=== PATIENT | female | born 1970 | race Caucasian/White ===

== ENCOUNTER → 2018-09-25 | Outpatient (CLI) | payer BC ==
[~2018-09-25] MED LIST: BIOT25006 PO; CINN500C2 PO; CYCL10TA2 PO; DOCU-109 PO; FERR325T14 PO; FERR325T72 PO; GABA-585 PO; HYDR12.575 PO; METO100T7 PO; NAPR-514 PO; NAPR220C4 PO; NORG1TAB34 PO; OXYC1TAB15 PO; POTASSIUM PO
--- NOTE | 2018-09-25 12:34 | KCIC ---
Indication:Dysmenorrhea. Fibroids. TECHNIQUE: Grayscale, color Doppler and spectral waveform images of the pelvis obtained. COMPARISON: None FINDINGS: Uterus is enlarged measuring 23.3 x 14.4 x 16.0 cm (longitudinal, AP, transverse). 10.4 x 10.1 x 10.8 cm mixed echogenicity mass is seen in the left fundus of the uterus most likely a fibroid. Short segment of endometrium is visualized and measures 1 cm in thickness. Rest of the endometrial stripe is distorted and is not visualized. Bilateral ovaries are not seen. No free pelvic fluid. IMPRESSION: Enlarged fibroid uterus with indistinct endometrial stripe which may be from distortion from the submucosal fibroid or adenomyosis. Electronically signed by: Diogenes Pennington DO (09/25/2018 12:31 PM) [facility]
== END | disposition home or self-care (01) ==
LOC: KCIC US 10:50
PROVIDERS: ATTEND Obstetrics & Gynecology
DX: Z01.419 Encounter for gynecological examination (general) (routine) without abnormal findings (principal); D25.9 Leiomyoma of uterus, unspecified; N85.2 Hypertrophy of uterus
CPT/HCPCS: 76856

== ENCOUNTER 2018-11-05 05:55 | Inpatient (IN) | payer BC ==
[2018-11-05] VITALS (8 sets, daily range): BP systolic 94–122; BP diastolic 63–72
[~2018-11-05] VITALS: Ht 167.6 cm; Wt 106.1 kg
[~2018-11-05 05:55] MED LIST changes: -DOCU-109 PO; -FERR325T72 PO; -OXYC1TAB15 PO
[2018-11-05] MEDS ORDERED: ceFAZolin SODIUM 3 GM in IV DEXTROSE 5% 100ML 100 ML IV PRN (06:00)
[2018-11-05] MEDS ORDERED: SURGICEL HEMOSTAT 4X8 EACH. ONE (06:04)
[2018-11-05] MEDS ORDERED: BUPIVACAINE-EPI 0.25%-1:200000 MPF 30 ML VIAL. ONE (06:04)
[2018-11-05 06:49] LABS: BASO % 0 % (0-3); EOS # 0.3 x10^3/uL (0.0-0.7); EOS % 3 % (0-3); HEMATOCRIT 46.2 % (36.0-47.0); HEMOGLOBIN 15.2 g/dL (12.0-15.5); LYMPH % 23 % (24-48); MEAN CORPUSCULAR HEMOGLOBIN 30 pg (25-35); MEAN CORPUSCULAR HGB CONC 33 g/dL (31-37); MEAN CORPUSCULAR VOLUME 90 fL (79-100); MONO # 0.5 x10^3/uL (0.0-1.1); MONO % 6 % (0-9); NEUT # 5.8 x10^3uL (1.8-7.7); NEUT % 67 % (31-73); PLATELET COUNT 237 x10^3/uL (140-400); RED BLOOD COUNT 5.15 x10^6/uL (3.50-5.40); RED CELL DISTRIBUTION WIDTH 14.9 % (11.5-14.5); WHITE BLOOD COUNT 8.7 x10^3/uL (4.0-11.0)
[2018-11-05] MEDS ORDERED: HYDROmorphone 2 MG/ML VIAL IV PRN (07:00)
[2018-11-05] MEDS ORDERED: PROCHLORPERAZINE 10 MG/2 ML VIAL. IV PRN ×2 (07:00→10:30)
[2018-11-05] MEDS ORDERED: IV RINGERS,LACTATED 1000ML 1,000 ML IV SCH (07:00)
[2018-11-05] MEDS ORDERED: ONDANSETRON PF 4 MG/2 ML VIAL. IV PRN ×2 (07:00→10:30)
[2018-11-05] MEDS ORDERED: fentaNYL PF VIAL 100 MCG/2 ML VIAL IV PRN (07:00)
[2018-11-05 07:04] LABS: U PREG PATIENT NEGATIVE (NEG)
[2018-11-05] MEDS ORDERED: fentaNYL PF VIAL 100 MCG/2 ML VIAL ONE ×4 (07:29→11:11)
[2018-11-05] MEDS ORDERED: ONDANSETRON PF 4 MG/2 ML VIAL. ONE (07:29)
[2018-11-05] MEDS ORDERED: PROPOFOL 20 ML IV ONE (07:29)
[2018-11-05] MEDS ORDERED: LIDOCAINE 2% PF 5 ML VIAL. ONE (07:29)
[2018-11-05] MEDS ORDERED: DEXAMETHASONE SOD PHOS 4 MG/ML VIAL ONE (07:29)
[2018-11-05] MEDS ORDERED: ROCURONIUM 50 MG/5 ML VIAL. ONE ×2 (07:30→08:31)
[2018-11-05] MEDS ORDERED: KETAMINE HCL IN NACL, ISO-OSM 50 MG/5 ML SYRINGE ONE (08:04)
[2018-11-05] MEDS ORDERED: IPRATRPIUM/ALBUTEROL 0.5/2.5MG 3 ML NEBU. ONE (08:13)
[2018-11-05] MEDS ORDERED: IPRATRPIUM/ALBUTEROL 0.5/2.5MG 3 ML NEBU. NEB ONE (08:30)
[2018-11-05] MEDS ORDERED: ALBUMIN HUMAN 5% 500 ML IV ONE ×2 (08:32→09:22)
[2018-11-05] MEDS ORDERED: SEVOFLURANE > 120 MINUTES. IH ONE (09:33)
[2018-11-05] MEDS ORDERED: GLYCOPYRROLATE 1 MG/5 ML VIAL. ONE (10:02)
[2018-11-05] MEDS ORDERED: NEOSTIGMINE METHYLSULFATE 5 MG/5 ML SYRINGE. ONE (10:03)
--- NOTE | 2018-11-05 10:21 | PDOC ---
BRIEF OPERATIVE NOTE Date: November 05, 2018 Pre-Op Diagnosis 1. Fibroids 2. Menorrhagia 3. Dysmenorrhea Post-Op Diagnosis Same Procedure Performed SUDHA & BSO Surgeon Dr. Smallwood Coding Assistant Mariajose Anesthesia Type: General Blood Loss 2600 ml Specimens Obtained Uterus, cervix, bilateral fallopian tubes and ovaries Findings nml size uterus with 20 cm + fibroids, nml fallopian tubes and ovaries jonathan Complications none Operative Note see dictation HESHAM SMALLWOOD Jr, MD November 05, 2018 10:21
[2018-11-05] MEDS ORDERED: ZOLPIDEM 5 MG TABLET. PO PRN (10:30)
[2018-11-05] MEDS ORDERED: diphenhydrAMINE 50 MG/ML VIAL IV PRN (10:30)
[2018-11-05] MEDS ORDERED: diphenhydrAMINE HCL 25 MG CAPSULE PO PRN (10:30)
[2018-11-05] MEDS ORDERED: CALCIUM CARBONATE 500 MG TAB.CHEW PO PRN (10:30)
[2018-11-05] MEDS ORDERED: 0.9 % SODIUM CHLORIDE 10 ML DISP.SYRIN. IV PRN (10:30)
[2018-11-05] MEDS ORDERED: DEXTROSE 50% 25 GM / 50ML DISP.SYRIN. IV PRN (10:30)
--- NOTE | 2018-11-05 10:45 | OP ---
DATE OF SURGERY: PREOPERATIVE DIAGNOSES: 1. Fibroids. 2. Menorrhagia. 3. Dysmenorrhea. POSTOPERATIVE DIAGNOSES: 1. Fibroids. 2. Menorrhagia. 3. Dysmenorrhea. PROCEDURE: SUDHA and BSO. SURGEON: Hesham Smallwood MD MAINTENANCE TRUCK DRIVER: Mariajose. ANESTHESIA: GETA. ESTIMATED BLOOD LOSS: 2600 mL. COMPLICATIONS: None. FINDINGS: Normal size uterus with 20 cm plus fibroids, normal fallopian tubes and ovaries bilaterally. SUMMARY: A 48-year-old with long history of 30-year plus history of dysmenorrhea and menorrhagia. The patient was also known to have enlarged fibroids. The patient was counseled on the risks, benefits and expectations of SUDHA and BSO and voiced a clear understanding to proceed. DESCRIPTION OF PROCEDURE: The patient was taken to surgery suite and placed in dorsal supine position. She was prepped with ChloraPrep and draped in a sterile fashion. After adequate anesthesia, a vertical skin incision was made from the pubic symphysis up to the umbilicus. DICTATION ENDS HERE HESHAM SMALLWOOD MD DR: CHEYENNE/justina JOB#: [id number] / [id number]
[2018-11-05 10:47] LABS: HEMATOCRIT 32.5 % (36.0-47.0); HEMOGLOBIN 10.6 g/dL (12.0-15.5)
[2018-11-05] MEDS: fentaNYL PF VIAL 100 MCG/2 ML VIAL IV PRN ×3 (10:58→11:15)
[2018-11-05] MEDS: MORPHINE SULFATE 2 MG/ML VIAL. IV PRN ×3 (11:17→11:38)
--- NOTE | 2018-11-05 11:40 | OP ---
DATE OF SURGERY: 11/05/2018 PREOPERATIVE DIAGNOSES: 1. Fibroids. 2. Menorrhagia. 3. Dysmenorrhea. POSTOPERATIVE DIAGNOSES: 1. Fibroids. 2. Menorrhagia. 3. Dysmenorrhea. PROCEDURE: SUDHA and BSO. SURGEON: Hesham Smallwood MD DETAILER: Mariajose. ANESTHESIA: GETA. ESTIMATED BLOOD LOSS: 2600 mL. COMPLICATIONS: None. FINDINGS: Normal size uterus with 20 cm plus fibroids, normal fallopian tubes and ovaries bilaterally. SUMMARY: A 48-year-old with long history of 30-year plus history of dysmenorrhea and menorrhagia. The patient was also known to have enlarged fibroids. The patient was counseled on the risks, benefits and expectations of SUDHA and BSO and voiced a clear understanding to proceed. DESCRIPTION OF PROCEDURE: The patient was taken to surgery suite and placed in dorsal supine position. She was prepped with ChloraPrep and draped in a sterile fashion. After adequate anesthesia, a vertical skin incision was made from the pubic symphysis up to the umbilicus. Once the patient was in supine position and prepped and draped in sterile fashion, vertical skin incision was made from the pubic symphysis up to the umbilicus. The incision was carried down to the fascia. The fascia was then entered with Bovie cautery and extended superiorly as well as inferiorly. The abdominal rectus muscles were then dissected bluntly at the midline. Peritoneum was grasped with two hemostats and entered sharply with Metzenbaum scissors. This incision was extended superiorly as well as inferiorly. The Javier ring retractor was placed. The uterus was a normal size uterus, fallopian tubes and ovaries appeared normal. The fibroids were 20+ cm size, which made the uterus immobile. Initially, we clamped the right infundibulopelvic ligament, was isolated and clamped with curved Norma clamps, cut and suture ligated with 2-0 Vicryl suture. The right round ligament was grasped and a 2-0 Vicryl suture was placed in the proximal and distal portion of the round ligament. The Bovie cautery was utilized to dissect between the two sutures. The right utero-ovarian pedicle was then clamped and isolated with curved Norma clamps, cut and suture ligated and removed. Same process took place with left adnexa. At this time due to the enlargement of the fibroid and inability to exteriorize the fibroid from the abdominal cavity, we then began a coring method using the scalpel to remove portions of the fibroid. At this time, we also removed the upper part of the uterus. We continued the coring method and got all the way down to the lower uterine segment and the fibroid was then removed. The uterosacral ligament was clamped bilaterally, cut, and suture ligated. The cardinal ligaments and uterine artery was clamped bilaterally, cut, and suture ligated. We then used straight Norma clamps just adjacent to the cervix bilaterally in which two additional pedicles were clamped, cut, suture ligated. Cervix was palpated and the cervix was removed with the aid of curved Norma clamps. The vaginal cuff was reapproximated as well as incorporation of the uterosacral ligaments bilaterally with 2-0 Vicryl sutures in a [id number] manner. A bladder reflection was dissected during dissection time. Suction irrigation was utilized to help verify hemostasis. We did utilize Braulio as well as 5 mL of FloSeal due to the peritoneal edges with minimal bleeding during the time of the removal of the fibroids. The remainder of the pedicles were all hemostatic. The ureters were palpated bilaterally as well as visualized and functioning normally. The Javier ring retractor was removed. The peritoneum was then reapproximated using #1 Vicryl suture in a running fashion. Fascia was reapproximated using 0 Vicryl suture in running fashion. Subcutaneous layer was reapproximated using #1 Vicryl suture in a running fashion. Skin was reapproximated using 4-0 Vicryl suture in subcuticular manner. Prevena wound VAC was placed. The patient tolerated the procedure well and was taken to recovery room in stable condition. Sponge and needle count correct x 3. This procedure was extended due to the high difficulty of the enlarged fibroids. The patient did lose about a little more than 2 liters of blood during the surgery time due to the large fibroids and 1 unit of blood was started in the OR. She will be evaluated once in the PACU as well as on the floor. HESHAM SMALLWOOD MD DR: CHEYENNE/justina JOB#: [id number] / [id number]
[2018-11-05] MEDS: KETOROLAC 30 MG/ML VIAL. IV PRN (17:08)
[2018-11-05] MEDS: SIMETHICONE 80 MG TAB.CHEW PO PRN (18:36)
[2018-11-05] MEDS: oxyCODONE/APAP 5/325 1 TAB TABLET PO PRN ×2 (19:18→23:18)
[2018-11-05] MEDS: GABAPENTIN 300 MG CAPSULE. PO SCH ×2 (19:19→23:17)
[2018-11-06] MEDS: KETOROLAC 30 MG/ML VIAL. IV PRN ×4 (01:01→22:36)
[2018-11-06] MEDS: oxyCODONE/APAP 5/325 1 TAB TABLET PO PRN ×5 (03:29→21:17)
[2018-11-06] MEDS: SIMETHICONE 80 MG TAB.CHEW PO PRN ×2 (03:32→10:34)
[2018-11-06 05:14] LABS: BASO % 0 % (0-3); EOS % 0 % (0-3); HEMATOCRIT 25.7 % (36.0-47.0); HEMOGLOBIN 8.5 g/dL (12.0-15.5); LYMPH # 1.9 x10^3/uL (1.0-4.8); LYMPH % 16 % (24-48); MEAN CORPUSCULAR HEMOGLOBIN 30 pg (25-35); MEAN CORPUSCULAR HGB CONC 33 g/dL (31-37); MEAN CORPUSCULAR VOLUME 89 fL (79-100); MONO # 1.1 x10^3/uL (0.0-1.1); MONO % 9 % (0-9); NEUT # 9.5 x10^3uL (1.8-7.7); NEUT % 75 % (31-73); PLATELET COUNT 165 x10^3/uL (140-400); RED BLOOD COUNT 2.88 x10^6/uL (3.50-5.40); RED CELL DISTRIBUTION WIDTH 14.7 % (11.5-14.5); WHITE BLOOD COUNT 12.6 x10^3/uL (4.0-11.0)
[2018-11-06] MEDS: GABAPENTIN 300 MG CAPSULE. PO SCH ×3 (06:16→22:35)
[2018-11-06 06:51] VITALS: BP 93/51
--- NOTE | 2018-11-06 08:24 | PDOC ---
SURGICAL PROGRESS NOTE Subjective Pt. feeling well. Pain controlled. Vital Signs Vital Signs Date Time Temp Pulse Resp B/P (MAP) Pulse Ox O2 Delivery O2 Flow Rate FiO2 11/06/18 08:00 Room Air 11/06/18 07:50 16 11/06/18 06:51 98.5 98 93/51 (65) 95 98.5 11/05/18 12:45 3.0 I&O Intake and Output 11/06/18 07:00 Intake Total 5050 ml Output Total 5850 ml Balance -800 ml Intake Oral 700 ml IV Total 3100 ml Other 1250 ml Output Urine Total 3250 ml Estimated Blood Loss 2600 ml PATIENT HAS A LEMOS: No General: Alert, Oriented X3, Cooperative HEENT: Atraumatic Lungs: Clear to auscultation Heart: Regular rate Abdomen: Soft, No tenderness Psych/Mental Status: Mental status NL Labs Laboratory Tests Test 11/05/18 06:10 11/05/18 06:25 11/05/18 10:40 11/06/18 04:55 Urine Test Negative (NEG) White Blood Count 8.7 x10^3/uL (4.0-11.0) 12.6 x10^3/uL (4.0-11.0) Red Blood Count 5.15 x10^6/uL (3.50-5.40) 2.88 x10^6/uL (3.50-5.40) Hemoglobin 15.2 g/dL (12.0-15.5) 10.6 g/dL (12.0-15.5) 8.5 g/dL (12.0-15.5) Hematocrit 46.2 % (36.0-47.0) 32.5 % (36.0-47.0) 25.7 % (36.0-47.0) Mean Corpuscular Volume 90 fL (79-100) 89 fL (79-100) Mean Corpuscular Hemoglobin 30 pg (25-35) 30 pg (25-35) Mean Corpuscular Hemoglobin Concent 33 g/dL (31-37) 33 g/dL (31-37) Red Cell Distribution Width 14.9 % (11.5-14.5) 14.7 % (11.5-14.5) Platelet Count 237 x10^3/uL (140-400) 165 x10^3/uL (140-400) Neutrophils (%) (Auto) 67 % (31-73) 75 % (31-73) Lymphocytes (%) (Auto) 23 % (24-48) 16 % (24-48) Monocytes (%) (Auto) 6 % (0-9) 9 % (0-9) Eosinophils (%) (Auto) 3 % (0-3) 0 % (0-3) Basophils (%) (Auto) 0 % (0-3) 0 % (0-3) Neutrophils # (Auto) 5.8 x10^3uL (1.8-7.7) 9.5 x10^3uL (1.8-7.7) Lymphocytes # (Auto) 2.0 x10^3/uL (1.0-4.8) 1.9 x10^3/uL (1.0-4.8) Monocytes # (Auto) 0.5 x10^3/uL (0.0-1.1) 1.1 x10^3/uL (0.0-1.1) Eosinophils # (Auto) 0.3 x10^3/uL (0.0-0.7) 0.0 x10^3/uL (0.0-0.7) Basophils # (Auto) 0.0 x10^3/uL (0.0-0.2) 0.0 x10^3/uL (0.0-0.2) Laboratory Tests Test 11/05/18 10:40 11/06/18 04:55 Hemoglobin 10.6 g/dL (12.0-15.5) 8.5 g/dL (12.0-15.5) Hematocrit 32.5 % (36.0-47.0) 25.7 % (36.0-47.0) White Blood Count 12.6 x10^3/uL (4.0-11.0) Red Blood Count 2.88 x10^6/uL (3.50-5.40) Mean Corpuscular Volume 89 fL (79-100) Mean Corpuscular Hemoglobin 30 pg (25-35) Mean Corpuscular Hemoglobin Concent 33 g/dL (31-37) Red Cell Distribution Width 14.7 % (11.5-14.5) Platelet Count 165 x10^3/uL (140-400) Neutrophils (%) (Auto) 75 % (31-73) Lymphocytes (%) (Auto) 16 % (24-48) Monocytes (%) (Auto) 9 % (0-9) Eosinophils (%) (Auto) 0 % (0-3) Basophils (%) (Auto) 0 % (0-3) Neutrophils # (Auto) 9.5 x10^3uL (1.8-7.7) Lymphocytes # (Auto) 1.9 x10^3/uL (1.0-4.8) Monocytes # (Auto) 1.1 x10^3/uL (0.0-1.1) Eosinophils # (Auto) 0.0 x10^3/uL (0.0-0.7) Basophils # (Auto) 0.0 x10^3/uL (0.0-0.2) Assessment/Plan A: POD#1 s/p SUDHA & BSO Anemia P: Continue post op pain. Start PO pain meds. Advance diet as tolerated. Encourage ambulation. Start iron BID. HESHAM WATT Jr, MD November 06, 2018 08:24
[2018-11-06] MEDS: FERROUS SULFATE 325 MG TABLET. PO SCH ×2 (08:40→21:16)
[2018-11-06 12:50] VITALS: BP 107/60
[2018-11-06 17:27] VITALS: BP 123/76
--- NOTE | 2018-11-06 18:06 | PATHOLOGY ---
[facility] Accession Number: [id number] . 01 Material submitted: . PART A: uterus - FIBROID - FS PART B: uterus - UTERUS, BILATERAL OVARIES AND TUBES. Modifiers: bilateral . 01 Clinical history: . Fibroids. . 01 Frozen section diagnosis: . INTRAOPERATIVE CONSULTATION WITH FROZEN SECTION: (Pedro Luis Woods MD) . Tissue designated "fibroid": - Leiomyoma. . FROZEN SECTION COMMENTS: . The results are reported to Dr. Smallwood in the operating room. Additional transportation services representative sections are submitted as A2-A6. . FROZEN SECTION GROSS: . A. The specimen is received fresh for intraoperative consultation and is designated, "fibroid". This consists of an irregular nodular segment of pink-house rubbery tissue, which weighs 88 grams and measures up to 7.4 x 6.3 x 6.3 cm in greatest dimension. Along one aspect, there appears to be a red wrinkled serosal surface measuring up to 5.0 x 3.0 cm. The remainder of the external surface is irregular, bulging and nodular. Sectioning reveals a pale house and pink-flores rubbery cut surface with no obvious areas of hemorrhage or necrosis. A transportation services representative portion is submitted for frozen section as FSA1. The tissue remaining from frozen section is submitted for permanent sections as A1. (JPM:bonita/relationship banker; 11/05/2018) . Frozen section performed at [facility], [address] [place] [address], [place] [id number]. /QMS . 02 Diagnosis: A. Tissue designated "fibroid": - Leiomyoma. . B. Segments of uterus and detached bilateral fallopian tubes and ovaries, hysterectomy with bilateral salpingo-oophorectomy: - Leiomyomas, uterine corpus, multiple, with foci of infarction, producing enlargement and distortion of uterine corpus (uterine weight 2250 grams). - Inactive/weakly proliferative endometrium. - Adenomyosis, uterine corpus. - Congestion of bilateral fallopian tubes. - Paratubal cysts, side indeterminate. - Follicular cyst of ovary, side indeterminate. - Leiomyoma of adnexal tissue adjacent to ovary, side indeterminate. . (JPM:relationship banker; 11/06/2018) MBR/11/06/2018 . 02 Comment: There is no evidence of malignancy. (JPM:relationship banker; 11/06/2018) . 02 Electronically signed: . Pedro Luis Woods MD, Pathologist NPI- [id number] . 01 Gross description: . A. Please see frozen section gross description dictated by the pathologist located under the Frozen Section part of this report. . B. Received in formalin labeled "Blount, Bridgette, fibroids, uterus, bilateral tubes and ovaries" is a fragmented hysterectomy specimen consisting of multiple portions of house-white leiomyomata, separate uterine fundus, and detached fallopian tubes and ovaries. The specimen weighs 2250 g in aggregate. The uterus measures 6.5 x 6.0 x 3.9 cm, and has a smooth pink-house serosa with one house-white nodule measuring 0.3 x 0.3 x 0.2 cm on the presumed anterior aspect. The inferior aspect of the uterus is ragged and displays house-white whorled nodularity consistent with leiomyoma. The uterus is bisected to reveal a 2.5 x 2.2 cm endometrial cavity. The average endometrial thickness is 0.2 cm and the average myometrial thickness is 1.7 cm. The separate fragments of leiomyomata measure in aggregate 23.5 x 18.5 x 12.0 cm, and have house-white whorled cut surfaces without hemorrhage or necrosis. A possible portion of cervix is identified, with the presumed endocervical canal measuring 2.4 x 1.0 cm. The separate salpingo-oophorectomy pieces consists of house-white cerebriform ovaries and pink-house fimbriated fallopian tubes. One of the pieces displays a suture, this fallopian tube measures 5.0 cm in length and 0.6 cm in diameter and has an attached ovary measuring 3.6 x 1.7 x 1.6 cm. The ovary displays a thin-walled simple cyst measuring 1.7 cm in greatest dimension. Within the cyst wall is a slightly firm house-white nodule measuring 0.4 cm in greatest dimension. The second fallopian tube (without suture) measures 5.5 cm in length and 0.6 cm in diameter and has an attached ovary measuring 2.5 x 1.7 x 0.6 cm. Adjacent to the ovary is a house-white firm nodule measuring 1.0 x 1.0 x 0.8 cm. Upon sectioning, the fallopian tubes have pinpoint lumens and the ovaries have house-white unremarkable parenchyma. Pasteurizer Helper sections are submitted as follows: B1-B2 anterior and posterior endomyometrium B3 uterine serosal nodule B4-B10 transportation services representative sections of fragments of leiomyomata B11 transportation services representative fallopian tube with suture B12 transportation services representative ovary with suture showing cyst and entire nodule B13 transportation services representative fallopian tube without suture B14 transportation services representative ovary without suture B15 nodule adjacent to ovary without suture B16 possible cervix ([facility] 11/05/2018) SYC/QMS . 02 Pathologist provided ICD-10: D25.9, N85.9, N80.0, N83.8, N83.00 . 02 CPT . 835054, [id number], [id number] Specimen Comment: A courtesy copy of this report has been sent to Specimen Comment: [phone], . Specimen Comment: Report sent to / DR WILSON Performed at: 01 [facility] [address] [facility] [address], [place] [id number] MD Alex Diego MD Phone: [phone] Performed at: 02 [facility] [address] [place], [place] [id number] MD Pedro Luis Woods MD Phone: [phone]
[2018-11-06] MEDS ORDERED: FERR325T72 PO (18:40)
[2018-11-06] MEDS ORDERED: DOCU-109 PO (18:40)
[2018-11-06] MEDS ORDERED: OXYC1TAB15 PO (18:40)
--- NOTE | 2018-11-06 18:41 | DISCH ---
DISCHARGE INSTRUCTIONS Condition on Discharge Condition on Discharge: Stable Activity After Discharge Activity Instructions for Disc: Activity as tolerated Lifting Instructions after Dis: No heavy lifting Driving Instructions after Dis: No driving for 2 weeks Diet after Discharge Diet after Discharge: Regular Contacting the DRPablo after DC Call your doctor for: Concerns you may have Follow-Up Follow up with: Dr. Smallwood in 2 weeks. HESHAM SMALLWOOD Jr, MD November 06, 2018 18:41
[2018-11-06 21:00] VITALS: BP 122/60
[2018-11-07 05:00] VITALS: BP 120/64
[2018-11-07] MEDS: KETOROLAC 30 MG/ML VIAL. IV PRN (05:11)
[2018-11-07] MEDS: GABAPENTIN 300 MG CAPSULE. PO SCH ×2 (06:33→10:23)
[2018-11-07] MEDS: oxyCODONE/APAP 5/325 1 TAB TABLET PO PRN (08:46)
[2018-11-07] MEDS: FERROUS SULFATE 325 MG TABLET. PO SCH (08:46)
[2018-11-07 10:00] VITALS: BP 118/68
--- NOTE | 2018-11-07 10:00 | NUR ---
home instructions gone over with pt and signed. may dc prevena when battery dies and throw away
--- NOTE | 2018-12-02 21:05 | DS ---
DATE OF DISCHARGE: 11/07/2018 ADMITTING DIAGNOSES: 1. Fibroids. 2. Menorrhagia. 3. Dysmenorrhea. DISCHARGE DIAGNOSES: 1. Fibroids. 2. Menorrhagia. 3. Dysmenorrhea. PROCEDURE: TAHBSO. SURGEON: Dr. Smallwood. PNEUMATIC HOIST OPERATOR: Mariajose. HOSPITAL COURSE: The patient was diagnosed with fibroid uterus along with this menorrhagia who received a TAHBSO. The patient did well following surgery, went home on postop day #2 in good condition. DISCHARGE DIET: Regular diet. DISCHARGE INSTRUCTIONS: Pelvic rest x 6 weeks, no driving x 2 weeks, no lifting greater than 20 pounds x 4 weeks. FOLLOWUP: The patient is to follow up in clinic in 2 weeks. HESHAM SMALLWOOD MD DR: CHEYENNE/justina JOB#: [id number] / [id number]
== END 2018-11-07 10:55 | disposition home or self-care (01) | DRG 743 ==
LOC: OPSVCIP 05:55 → 3 NORTH 12:35
PROVIDERS: ADMIT Obstetrics & Gynecology; ATTEND Obstetrics & Gynecology
PROC: 0UT70ZZ Resection of Bilateral Fallopian Tubes, Open Approach (ICD-10-PCS; 2018-11-05)
PROC: 0UT90ZZ Resection of Uterus, Open Approach (ICD-10-PCS; 2018-11-05)
PROC: 30233N1 Transfusion of Nonautologous Red Blood Cells into Peripheral Vein, Percutaneous Approach (ICD-10-PCS; 2018-11-05)
PROC: 0UT20ZZ Resection of Bilateral Ovaries, Open Approach (ICD-10-PCS; principal; 2018-11-05 08:00)
DX: D25.9 Leiomyoma of uterus, unspecified (principal); N92.0 Excessive and frequent menstruation with regular cycle; N94.6 Dysmenorrhea, unspecified; D64.9 Anemia, unspecified
CPT/HCPCS: 36415; 81025; 85014; 85018; 85025; 86850; 86900; 86901; 86920; 88305; 88307; 88331; 94640; A7015; J0690; J0780; J1100; J1885; J2001; J2270; J2405; J2704; J2710; J3010; J3490; J7030; J7120; J7620; P9016; P9045; A4461

== ENCOUNTER → 2019-02-11 | Outpatient (CLI) | payer BC ==
[~2019-02-11] MED LIST changes: +DOCU-109 PO; +FERR325T72 PO; -NORG1TAB34 PO; +NORG1TAB70 PO; +OXYC1TAB15 PO
--- NOTE | 2019-02-12 11:10 | RAD ---
DATE: 02/12/2019 EXAM: MAMMO LIZABETH SCREENING BILATERAL HISTORY: Routine baseline screening. COMPARISON: None This study was interpreted with the benefit of Computerized Aided Detection (CAD). FINDINGS: Breast Density: SCATTERED The breast parenchyma shows scattered fibroglandular densities. Breast parenchyma level B. The skin and nipples are within normal limits. No suspicious calcifications, spiculated mass or area of architectural distortion. IMPRESSION: No mammographic evidence of malignancy. BI-RADS CATEGORY: 1 NEGATIVE RECOMMENDED FOLLOW-UP: 12M 12 MONTH FOLLOW-UP PQRS compliance statement: Patient information was entered into a reminder system with a target due date for the next mammogram. Mammography is a sensitive method for finding small breast cancers, but it does not detect them all and is not a substitute for careful clinical examination. A negative mammogram does not negate a clinically suspicious finding and should not result in delay in biopsying a clinically suspicious abnormality. "Our facility is accredited by the [employer] Mammography Program."
== END | disposition home or self-care (01) ==
LOC: MAMMO 13:10
PROVIDERS: ATTEND Obstetrics & Gynecology
DX: Z12.31 Encounter for screening mammogram for malignant neoplasm of breast (principal)
CPT/HCPCS: 77063; 77067